=== PATIENT | female | born 1945 | race Caucasian/White ===

== ENCOUNTER 2016-11-28 07:02 | Emergency (ER) | payer OTHER ==
[~2016-11-28] VITALS: Ht 160 cm; Wt 79.4 kg
[~2016-11-28 07:02] MED LIST: DESYREL100 MG PO; FOSAMAX5 MG PO; LIPITOR10 MG PO; SEROQUEL100 MG PO; ZOFRAN ODT4 MG PO; ZOLOFT100 MG PO; ZYRTEC10 M2 PO
[2016-11-28] MEDS ORDERED: NORCO 5/3251 TABLET PO (08:09)
[2016-11-28 08:28] VITALS: BP 124/59
== END 2016-11-28 08:44 | disposition home or self-care (01) ==
LOC: EME 07:02
PROC: 2W3CX1Z Immobilization of Right Lower Arm using Splint (ICD-10-PCS; principal; 2016-11-28)
DX: S52.571A Other intraarticular fracture of lower end of right radius, initial encounter for closed fracture (principal); W07.XXXA Fall from chair, initial encounter; F41.9 Anxiety disorder, unspecified; F20.9 Schizophrenia, unspecified
CPT/HCPCS: 73110; 99281; 99283